=== PATIENT | female | born 1960 | race African-American/Black ===

== ENCOUNTER 2020-01-13 11:49 | Emergency (ER) | payer OTHER ==
[~2020-01-13] VITALS: Ht 177.8 cm; Wt 79.0 kg
[~2020-01-13 11:49] MED LIST: BUSP10TA3
[2020-01-13 12:36] VITALS: BP 126/79
[2020-01-13] MEDS ORDERED: AZITHROMYCIN 500 MG TABLET PO ONE (13:00)
[2020-01-13] MEDS ORDERED: LIDOCAINE HCL/PF 1% 10 MG/ML 5ML VIAL IJ ONE (13:00)
[2020-01-13] MEDS ORDERED: CEFTRIAXONE SODIUM 250 MG/VIAL IM ONE (13:00)
== END 2020-01-13 13:26 | disposition home or self-care (01) ==
LOC: EDSEX 11:49 → ER 11:49
DX: J02.9 Acute pharyngitis, unspecified (principal); I10 Essential (primary) hypertension; Z88.2 Allergy status to sulfonamides
CPT/HCPCS: 96372; 99283; J0696; J3490

== ENCOUNTER 2020-07-02 15:20 | Emergency (ER) | payer OTHER ==
[~2020-07-02] VITALS: Ht 172.7 cm; Wt 65.0 kg
[2020-07-02 15:23] VITALS: BP 113/71
[2020-07-02] MEDS ORDERED: VALA100044 MT (16:46)
== END 2020-07-02 17:02 | disposition home or self-care (01) ==
LOC: ER 15:20
DX: K13.79 Other lesions of oral mucosa (principal); Z20.2 Contact with and (suspected) exposure to infections with a predominantly sexual mode of transmission; I10 Essential (primary) hypertension; Z88.1 Allergy status to other antibiotic agents; Z88.2 Allergy status to sulfonamides
CPT/HCPCS: 87255; 99283